=== PATIENT | male | born 1995 | race Caucasian/White ===

== ENCOUNTER 2021-06-11 18:16 | Emergency (ER) | payer OTHER | END 2021-06-11 20:12 | disposition left against medical advice (07) | LOC: ED 18:16 | DX: Z53.9 Procedure and treatment not carried out, unspecified reason (principal) ==

== ENCOUNTER 2022-07-12 01:58 | Emergency (ER) | payer OTHER ==
[2022-07-12 02:15] VITALS: BP 129/87; PULSE 105; O2SAT 96
--- NOTE | 2022-07-12 02:26 | ERPHSYRPT ---
- History of Present Illness Time Seen by Provider: 07/12/22 02:19 Source: patient Exam Limitations: no limitations Patient Subjective Stated Complaint: fever, headache, nasal congestion, nonproductive cough Triage Nursing Assessment: Pt ambulated to room without difficulty. Respirations appear unlabored and regular. Pt's eyes are reddened and his skin is flushed and warm. Lung sounds clear throughout. Heart sounds WNL. Bowel sounds present x 4 quads. Denies N/V and diarrhea. Physician History: Patient here for what sounds like a viral infection. Patient has cough cold congestion. Has been going on for 3 days. He has not taken any Tylenol today. Temperature of 100.2. States it was 102 last night. 99.5 earlier today. States that he did take Tylenol approximately 7 to 8 hours ago. This did help bring his fever down. Otherwise, he has been taking Mucinex and Zyrtec. Mostly complains of congestion. No known COVID exposures. Timing/Duration: day(s) Severity: mild Modifying Factors: Improves With: acetaminophen Associated Symptoms: denies symptoms Allergies/Adverse Reactions: No Known Drug Allergies Allergy (Unverified 07/12/22 02:03) Home Medications: No Reportable Medications [No Reported Medications] 07/12/22 [History] Immunizations Up to Date: Yes Travel Risk - International Travel Have you traveled outside of the country in past 3 weeks: No - Coronavirus Screening Are you exhibiting any of the following symptoms?: Yes Symptoms: Fever, Cough: New Onset, Headaches/Body Aches/Fatigue Close contact with a COVID-19 positive Pt in past 14-21 Days: No - Vaccine Status Have you recieved a Covid-19 vaccination: No - Review of Systems Constitutional: Fever, Chills Eyes: No Symptoms Ears, Nose, & Throat: No Symptoms, Nose Congestion Respiratory: Cough, No Dyspnea Cardiac: No Chest Pain, No Edema, No Syncope Abdominal/Gastrointestinal: No Abdominal Pain, No Nausea, No Vomiting, No Diarrhea Genitourinary Symptoms: No Dysuria Musculoskeletal: No Back Pain, No Neck Pain Skin: No Rash Neurological: No Dizziness, No Focal Weakness, No Sensory Changes Psychological: No Symptoms Endocrine: No Symptoms All Other Systems: Reviewed and Negative - Past Medical History Pertinent Past Medical History: No Neurological History: No Pertinent History ENT History: No Pertinent History Cardiac History: No Pertinent History Respiratory History: No Pertinent History Endocrine Medical History: No Pertinent History Musculoskeletal History: No Pertinent History GI Medical History: No Pertinent History History: No Pertinent History Psycho-Social History: No Pertinent History Male Reproductive Disorders: No Pertinent History - Past Surgical History Past Surgical History: Yes Neuro Surgical History: No Pertinent History Cardiac: No Pertinent History Respiratory: No Pertinent History Gastrointestinal: No Pertinent History Genitourinary: No Pertinent History Musculoskeletal: No Pertinent History Male Surgical History: No Pertinent History Other Surgical History: tubes in ears - Social History Smoking Status: Never smoker Exposure to second hand smoke: Yes Drug Use: marijuana - Nursing Vital Signs Nursing Vital Signs: Initial Vital Signs Temperature 100.2 F 07/12/22 02:04 Pulse Rate 105 H 07/12/22 02:04 Respiratory Rate 18 07/12/22 02:04 Blood Pressure 129/87 07/12/22 02:04 O2 Sat by Pulse Oximetry 96 07/12/22 02:04 Pain Scale Pain Intensity 0 - Physical Exam General Appearance: no apparent distress, alert Eye Exam: PERRL/EOMI, eyes nml inspection, other (Eyes appear injected) Ears, Nose, Throat Exam: normal ENT inspection, TMs normal, pharynx normal, moist mucous membranes, other (Throat is clear, no signs of exudate.) Neck Exam: normal inspection, non-tender, supple, full range of motion Respiratory Exam: normal breath sounds, lungs clear, No respiratory distress Cardiovascular Exam: regular rate/rhythm, normal heart sounds, normal peripheral pulses Gastrointestinal/Abdomen Exam: soft, normal bowel sounds, No tenderness, No mass Back Exam: normal inspection, normal range of motion, No CVA tenderness, No vertebral tenderness Extremity Exam: normal inspection, normal range of motion, pelvis stable Neurologic Exam: alert, oriented x 3, cooperative, normal mood/affect, nml cerebellar function, nml station & gait, sensation nml, No motor deficits Skin Exam: normal color, warm, dry, No rash Lymphatic Exam: No adenopathy SpO2: 96 - Course Nursing assessment & vital signs reviewed: Yes - Progress Progress: improved Progress Note: 07/12/22 02:27 I did have a long discussion about the normal course of a viral illness with the patient. Tonight, patient declines a work note. States that he does not work currently. They are somewhat concerned for COVID. I did state that we could do a home COVID test or test here. He states he would rather do a home COVID test due to cost. I did also offer Tylenol, ibuprofen, other symptom relief tonight. Again, patient declined. I did my best to answer all of his questions and his friend's questions. It does seem, they are most concerned about possible COVID, exposure and disease progression, illness. Therefore, I did explain from my best no medical knowledge of how to proceed. They stated they would go home and take Tylenol and ibuprofen. Rest, home quarantine. Otherwise, they will return here for new or changing symptoms. Counseled pt/family regarding: diagnosis, need for follow-up, smoking cessation - Departure Departure Disposition: Home Clinical Impression: Viral illness Condition: Stable Critical Care Time: No Referrals: DOCTOR,NO FAMILY [Primary Care Provider] - Follow up/PCP as directed RAMON ELLSWORTH MD [ACTIVE STAFF] - Follow up/PCP as directed Instructions: Fever, Adult (DC)
== END 2022-07-12 02:35 | disposition home or self-care (01) ==
LOC: ED 01:58
DX: B34.9 Viral infection, unspecified (principal); R05.1 Acute cough; R09.81 Nasal congestion; R50.9 Fever, unspecified; Z28.310 Unvaccinated for COVID-19
CPT/HCPCS: 99281

== ENCOUNTER 2023-09-05 00:31 | Emergency (ER) | payer SELFPAY ==
[2023-09-05 00:40] VITALS: RESP 18; TEMP 97.3; O2SAT 98
[2023-09-05] MEDS ORDERED: Augmentin 875-125 Tablet ONE (01:00)
[2023-09-05] MEDS ORDERED: HYDROCODONE-ACETAMIN 10-325 MG ONE (01:00)
[2023-09-05 02:03] VITALS: BP 115/73; PULSE 92
== END 2023-09-05 01:54 | disposition home or self-care (01) ==
LOC: ED 00:31
DX: K04.7 Periapical abscess without sinus (principal); K08.89 Other specified disorders of teeth and supporting structures
CPT/HCPCS: 99281; A9270-GY

== ENCOUNTER 2024-02-17 | Emergency (ER) | payer SELFPAY ==
[2024-02-17] MEDS ORDERED: Augmentin 875-125 Tablet ONE (00:30)
[2024-02-17] MEDS: Augmentin 875-125 Tablet PO ONE (00:32)
[2024-02-17 00:40] VITALS: TEMP 97.5
--- NOTE | 2024-02-17 00:41 | ERPHSYRPT ---
- History of Present Illness Time Seen by Provider: 02/17/24 00:03 Source: patient Exam Limitations: no limitations Patient Subjective Stated Complaint: Dental pain Triage Nursing Assessment: pt ambulated into ER without diff, pt alert and oriented x4, cooperative. Pt c/o bottom right lower tooth pain which began on but has gotten worse. Pt has had this pain off and on x6 months. Pt cannot find someone to just pull the tooth, they want to pull all of his teeth. Physician History: 29-year-old male presented in the ER with complaints of right molar area pain and swelling for the last few days with progressive worsening. Patient report he has history of dental caries and multiple infections in the past and same tooth. He is in the process of getting appointment with oral surgeon to have it pulled out. Reports moderate to severe sharp pain, has taken leftover Percocet at home and is feeling better. Wants to get prescription for antibiotics. No fever or chills reported. No sore throat. No difficulty breathing or swallowing. Allergies/Adverse Reactions: No Known Drug Allergies Allergy (Verified 02/17/24 00:10) Hx Tetanus, Diphtheria Vaccination/Date Given: Yes Hx Influenza Vaccination/Date Given: No Hx Pneumococcal Vaccination/Date Given: No Immunizations Up to Date: No Travel Risk - International Travel Have you traveled outside of the country in past 3 weeks: No - Emerging Infectious Disease Are you exhibiting symptoms associated with any current EIDs: No - Review of Systems Constitutional: No Symptoms Eyes: No Symptoms Ears, Nose, & Throat: Loose Teeth Respiratory: No Symptoms Cardiac: No Symptoms Musculoskeletal: No Symptoms Skin: No Symptoms Neurological: No Symptoms Endocrine: No Symptoms Hematologic/Lymphatic: No Symptoms - Past Medical History Pertinent Past Medical History: Yes Neurological History: No Pertinent History ENT History: No Pertinent History Cardiac History: No Pertinent History Respiratory History: Pneumonia Endocrine Medical History: No Pertinent History Musculoskeletal History: Fractures GI Medical History: No Pertinent History History: No Pertinent History Psycho-Social History: No Pertinent History Male Reproductive Disorders: No Pertinent History - Past Surgical History Past Surgical History: Yes Neuro Surgical History: No Pertinent History Cardiac: No Pertinent History Respiratory: No Pertinent History Gastrointestinal: No Pertinent History Genitourinary: No Pertinent History Musculoskeletal: No Pertinent History Male Surgical History: No Pertinent History Other Surgical History: tubes in ears - Social History Smoking Status: Current every day smoker How long have you smoked: 5 yrs Exposure to second hand smoke: No Drug Use: none Patient Lives Alone: No - Nursing Vital Signs Nursing Vital Signs: Initial Vital Signs Temperature 97.5 F 02/17/24 00:11 Pulse Rate 60 02/17/24 00:11 Respiratory Rate 18 02/17/24 00:11 Blood Pressure 125/86 02/17/24 00:11 O2 Sat by Pulse Oximetry 97 02/17/24 00:11 Pain Scale Pain Intensity 10 - Physical Exam General Appearance: no apparent distress, alert Eye Exam: bilateral eye: normal inspection, PERRL, EOMI Ear Exam: bilateral ear: auricle normal, canal normal, TM normal Nasal Exam: normal inspection Throat Exam: pharynx normal, dental tenderness (Right lower third molar with minimal gingival swelling and tenderness. No fluctuation. Dental caries.) Neck Exam: normal inspection, non-tender, supple, full range of motion, lymphadenopathy (R) Cardiovascular/Respiratory Exam: chest non-tender, normal breath sounds, regular rate/rhythm Neurologic Exam: alert, oriented x 3, christmas tree grower II-XII nml as tested, normal mood/affect, sensation nml, motor deficits Skin Exam: normal color SpO2 Interpretation: normal SpO2: 97 O2 Delivery: Room Air Ordered Tests: Medication Summary Discontinued Medications Generic Name Dose Route Start Last Admin Trade Name [id number] PRN Reason Stop Dose Admin Amoxicillin/Clavulanate Potassium 875 mg 02/17/24 00:27 02/17/24 00:32 Amox Tr/Potassium Clavulanate 875 Mg Tablet PO 02/17/24 00:28 875 mg STAT ONE Administration Amoxicillin/Clavulanate Potassium Confirm 02/17/24 00:30 Amox Tr/Potassium Clavulanate 875 Mg Tablet Administered 02/17/24 00:31 Dose 875 mg .ROUTE .STK-MED ONE - Progress Progress: unchanged Progress Note: 02/17/24 00:39 29-year-old is evaluated for dental infection. Patient has taken Percocet at home and pain is better. He is not having any edyta dental abscess currently. He is started on Augmentin. Will give ibuprofen and Augmentin to go home. Recommended outpatient oral surgeon follow-up. Discussed signs symptoms of worsening needing return to ER which he seems understanding. Stable for discharge. Counseled pt/family regarding: diagnosis, need for follow-up Medical Desision Making - Risk of complications The pt has a mod risk of morbidity or mortality based on: Need for prescription drug management - Departure Departure Disposition: Home Clinical Impression: Dental infection Condition: Stable Critical Care Time: No Referrals: DOCTOR,NO FAMILY [Primary Care Provider] - Follow up/PCP as directed KACIE CORONA DDS [NON-STAFF PHY W/O PRIVILEGES] - Follow up/PCP as directed (Call for appointment in the morning) Instructions: Tooth Abscess (DC) Additional Instructions: Take Tylenol/ibuprofen as needed. Follow-up with dental/oral surgeon for reevaluation and tooth extraction. Return to ER for intractable pain swelling, fever chills etc. Prescriptions: Ibuprofen 600 mg PO Q6HPRN PRN 10 Days #20 tablet PRN Reason: Pain Amox Tr/Potass Clav. 875 mg [Augmentin 875-125 Tablet] 875 mg PO BID #14 tablet
[2024-02-17 01:08] VITALS: BP 107/66; PULSE 50; RESP 16; O2SAT 95
== END 2024-02-17 01:08 | disposition home or self-care (01) ==
LOC: ED
DX: K04.7 Periapical abscess without sinus (principal); K08.89 Other specified disorders of teeth and supporting structures; Z72.0 Tobacco use
CPT/HCPCS: 99282; A9270-GY

== ENCOUNTER 2025-08-12 10:42 | Emergency (ER) | payer OTHER ==
[2025-08-12 11:26] VITALS: RESP 18; TEMP 96.7
--- NOTE | 2025-08-12 11:42 | ERPHSYRPT ---
- History of Present Illness Source: patient Exam Limitations: no limitations Patient Subjective Stated Complaint: Pt. states, "I have a broken/abscessed rt. molar. I saw a dentist in [place] and he told me that I am going to need oral surgery." Triage Nursing Assessment: Pt. ambulates to room without difficulty, A&Ox3, Skin P/W/D, Resp. even unlabore, rt. molar blackish/green with swollen red gum surrounding. Timing/Duration: today Severity: mild Modifying Factors: Improves With: cold therapy Associated Symptoms: denies symptoms Allergies/Adverse Reactions: No Known Drug Allergies Allergy (Verified 02/17/24 00:10) Hx Tetanus, Diphtheria Vaccination/Date Given: Yes Hx Influenza Vaccination/Date Given: No Hx Pneumococcal Vaccination/Date Given: No Travel Risk - Emerging Infectious Disease Are you exhibiting symptoms associated with any current EIDs: No - Review of Systems Constitutional: No Symptoms Eyes: No Symptoms Ears, Nose, & Throat: No Symptoms Respiratory: No Symptoms Cardiac: No Symptoms Abdominal/Gastrointestinal: No Symptoms Genitourinary Symptoms: No Symptoms Musculoskeletal: No Symptoms Skin: No Symptoms Neurological: No Symptoms Psychological: No Symptoms Endocrine: No Symptoms Hematologic/Lymphatic: No Symptoms Immunological/Allergic: No Symptoms All Other Systems: Reviewed and Negative - Past Medical History Pertinent Past Medical History: No Neurological History: No Pertinent History ENT History: No Pertinent History Cardiac History: No Pertinent History Respiratory History: No Pertinent History Endocrine Medical History: No Pertinent History Musculoskeletal History: No Pertinent History - Past Surgical History Past Surgical History: Yes Other Surgical History: Tubes in Ears - Social History Smoking Status: Never smoker Exposure to second hand smoke: No Drug Use: none - Social Determinants of Health Will the patient participate in the screening: Declined to provide - Nursing Vital Signs Nursing Vital Signs: Initial Vital Signs Temperature 96.7 F 08/12/25 10:43 Pulse Rate 48 L 08/12/25 10:43 Respiratory Rate 18 08/12/25 10:43 Blood Pressure 100/57 08/12/25 10:43 O2 Sat by Pulse Oximetry 97 08/12/25 10:43 Pain Scale Pain Intensity 7 - Physical Exam General Appearance: no apparent distress Eye Exam: PERRL/EOMI Ears, Nose, Throat Exam: normal ENT inspection, other (dental caries noted ) Neck Exam: normal inspection Respiratory Exam: normal breath sounds Cardiovascular Exam: regular rate/rhythm Gastrointestinal/Abdomen Exam: soft, normal bowel sounds SpO2: 97 - Progress Progress Note: patient was seen for dental caries and informed of the need for follow up with his dentist - he will be discharged home with amoxil 08/12/25 11:47 - Departure Departure Disposition: Home Clinical Impression: Dental caries Condition: Stable Critical Care Time: No Instructions: Tooth Abscess (DC), Tooth Decay, Adult (DC) Prescriptions: Amoxicillin [AMOXIL 250 MG CAPSULE] 2 cap PO TID #30 cap
[2025-08-12] MEDS: TORAdol 10 MG TABLET PO ONE (11:57)
[2025-08-12 12:12] VITALS: BP 106/60; PULSE 52; O2SAT 98
== END 2025-08-12 12:13 | disposition home or self-care (01) ==
LOC: ED 10:42
DX: K02.9 Dental caries, unspecified (principal)